=== PATIENT | female | born 1980 | race Caucasian/White ===

== ENCOUNTER 2016-11-06 11:45 | Emergency (ER) | payer OTHER ==
[~2016-11-06] VITALS: Wt 50.0 kg
--- NOTE | 2016-11-06 12:11 | ERD ---
ER Documentation Chief Complaint Date/Time DATE: 11/06/16 TIME: 12:09 Chief Complaint CHEST PAIN X 1 DAY HPI There is 35-year-old female was experiencing intermittent chest pain for 1 day. Chest pain is left-sided and radiates to her back. Is intermittent and lasts only a few seconds at a time. It is described as a sharp pain. She has no current medical problems except for mild anemia for which she is intermittently taking iron from her doctor. She is not taking iron currently because she is on her. In which case she is not supposed to be taking iron. She believes she has palpitations and some shortness of breath during the second that she has the chest pain. She is currently not having any symptoms in the emergency room. She has no nausea or vomiting. ROS All systems reviewed and are negative except as per history of present illness. Medications Home Meds Active Scripts Ranitidine Hcl* (Zantac*) 150 Mg Tablet, 150 MG PO BID Y for EPIGASTRIC PAIN, # 30 TAB Prov:CINDY PEARL DO 11/06/16 Allergies Allergies: Coded Allergies: No Known Allergy (Unverified , 11/06/16) PMhx/Soc Medical and Surgical Hx: pt denies Medical Hx, pt denies Surgical Hx History of Surgery: No Anesthesia Reaction: No Hx Neurological Disorder: No Hx Respiratory Disorders: No Hx Cardiac Disorders: No Hx Psychiatric Problems: No Hx Miscellaneous Medical Probl: No Hx Alcohol Use: No Hx Substance Use: No Hx Tobacco Use: No Smoking Status: Never smoker Physical Exam Vitals Vital Signs Date Time Temp Pulse Resp B/P Pulse Ox O2 Delivery O2 Flow Rate FiO2 11/06/16 11:47 98.0 78 18 105/59 100 Physical Exam Const: [] no distress Head: Atraumatic Eyes: Normal Conjunctiva ENT: Normal External Ears, Nose and Mouth. Neck: Full range of motion..~ No meningismus. Resp: Clear to auscultation bilaterally Cardio: Regular rate and rhythm, no murmurs Abd: Soft, non tender, non distended. Normal bowel sounds Skin: No petechiae or rashes Back: No midline or flank tenderness Ext: No cyanosis, or edema Neur: Awake and alert and oriented 3, no focal deficits Psych: Normal Mood and Affect Results 24 hrs Current Medications Medications (Trade) Dose Ordered Sig/Ok Route PRN Reason Start Time Stop Time Status Last Admin Dose Admin Miscellaneous Medication (Gi Cocktail (2)) 40 ml ONCE ONCE PO 11/06/16 12:30 11/06/16 12:31 DC 11/06/16 12:18 Procedures/MDM Atypical intermittent chest pain lasting seconds. No pain in the emergency room. Patient had a normal EKG with no signs of ischemia. She also has absolutely no risk factors for PE or for acute coronary syndrome. This low risk patient has a normal EKG and is asymptomatic. GI cocktail was given in the emergency room including lidocaine and Maalox. Patient stated that she definitely had no pain after that was given. Am going to discharge I feel an outpatient echocardiogram is the next logical step. Patient has a primary care doctor who she can call today and asked to schedule an echocardiogram for next week. Muscular discharge her with Zantac in case some of her pain is related to acid reflux. Return precautions to the ER given for any return of chest pain or any concerning symptoms. EKG interpretation: Normal sinus rhythm rate of 66, normal respiratory variation , normal axis, no ST or T-wave changes concerning for acute ischemia. Overall normal EKG. Departure Diagnosis: Primary Impression: Chest pain Condition: Stable DAEJENNIFERCINDY DO Nov 06, 2016 12:11
[2016-11-06] MEDS ORDERED: LIDOCAINE/MYLANTA 40 ML BTL PO ONE (12:30)
[2016-11-06] MEDS ORDERED: RANI150T9 PO (12:48)
== END 2016-11-06 13:12 | disposition home or self-care (01) ==
LOC: FTE 11:45
DX: R07.9 Chest pain, unspecified (principal)
CPT/HCPCS: Z7502; Z7610